=== PATIENT | female | born 1970 | race American Indian/Alaskan Native ===

== ENCOUNTER 2017-06-30 09:59 | Emergency (ER) | payer SELFPAY ==
[~2017-06-30] VITALS: Ht 162.6 cm; Wt 92.3 kg
[2017-06-30 10:08] VITALS: BP 172/101
[2017-06-30] MEDS ORDERED: PLEASE ENTER ALLERGIES MC SCH ×2 (11:00)
[2017-06-30] MEDS ORDERED: CEFTRIAXONE PMX 1GM/50ML 50 ML IVPB ONE (11:00)
[2017-06-30] MEDS ORDERED: SODIUM CHLORIDE FLUSH 10ML SYR IVF ONE (11:00)
== END 2017-06-30 10:46 | disposition left against medical advice (07) ==
LOC: ED 10:43
DX: L03.115 Cellulitis of right lower limb (principal)
CPT/HCPCS: 99281